=== PATIENT | male | born 1950 | race Caucasian/White ===

== ENCOUNTER 2017-12-02 05:35 | Day surgery (SDC) | payer MEDICARE, OTHER ==
[~2017-12-02] VITALS: Ht 172.7 cm; Wt 70.3 kg
[~2017-12-02 05:35] MED LIST: AMBIEN10 MG PO; BABY ASPIRIN81 MG PO; CRESTOR10 MG PO; FENOFIBRATE160 MG PO; IRON325 M1 PO; LISINOPRIL5 MG PO; MAGNESIUM250 M1 PO; NORCO 5-325 TA1 EACH PO; NORVASC5 MG PO; POTASSIUM CHLOR8 ME1 PO; SYNTHROID50 MCG PO; ZOLOFT50 MG PO
--- NOTE | 2017-12-02 08:47 | NUR ---
12/02/17 0847 Coty Vivas ICE TO BOTTOM. PT SITTING UP, REPORTS SOME TINGLING IN HIS TOES. PT NOTIFIED THIS IS DUE TO THE SADDLE BLOCK PREVIOUSLY DONE. PT ALSO REPORTS SOME PRESSURE IN RECTAL AREA.
--- NOTE | 2017-12-07 18:42 | OR ---
[facility] [address] [place], [place] [address] Signed DATE OF OPERATION: 12/02/2017 SURGEON: Kishan Webster MD PREOPERATIVE DIAGNOSIS: Left external hemorrhoid (left, posterior). POSTOPERATIVE DIAGNOSIS: Left external hemorrhoid (left, posterior). PROCEDURE: External hemorrhoidectomy x1. ESTIMATED BLOOD LOSS: None. INDICATIONS: Iliana is a 66-year-old gentleman who has had trouble with a left posterior external hemorrhoid. He has been to every conservative measure you can imagine. He has a very detailed treatment plan that he has been following. He can get the hemorrhoid obviously to shrink, but it frequently flares and it causes him some moisture and irritation around his anus. He has also had a lot of itching. He wanted me to look at it in the office. In the office, he does have a moderate-sized external hemorrhoid at the 11 o'clock position. Otherwise, he has good sphincter tone and actually has good perianal hygiene. In the office, I gave Iliana a booklet on hemorrhoids. We looked at that together in detail. I explained to Iliana, he was doing quite well with his conservative measures. Nevertheless, he wanted me to excise that external hemorrhoid for definitive treatment. I explained to him the nature of the surgery along with its risks including but not limited to bleeding, infection, scarring, change in contour of the skin as well as recurrent hemorrhoids. He had expressed understanding and wished to proceed. PROCEDURE NOTE: Iliana was given a saddle block by our nurse manager play. He was then taken into the operating room and placed in the prone ariella-knife position with appropriate padding and monitoring. He was given monitored anesthesia care per our nurse manager play. He was given preoperative antibiotics along with subcutaneous heparin. SCDs were utilized. He was then prepped and draped in the usual sterile fashion. After this, we examined his anal canal with a half-langford retractor. Again, he has just this 1 single external hemorrhoid. Really, no internal component. Really not much at all in the way of internal hemorrhoid tissue. The remainder of the external hemorrhoid tissue was just Electronically Signed By: KISHAN WEBSTER MD 12/07/17 1842 PATIENT NAME: ILIANA MARTINES OPERATIVE REPORT DATE OF : 46 PHYSICIAN: KISHAN WEBSTER MD REPORT #: [id number] REPORT IS CONFIDENTIAL AND NOT TO BE RELEASED WITHOUT AUTHORIZATION [facility] [address] [place] [id number] Signed fine. After this, we used our cautery to excise the external hemorrhoid completely. We passed it off the field. Local anesthetic was then injected underneath the operative site. Dry gauze was placed along with some underwear. Iliana was then rotated into the supine position onto his hospital bed and taken into recovery room in stable condition. MD JENNIFRE Moyer/NETOL /[id number] cc: MD Jimmie Moyer MD Electronically Signed By: KISHAN WEBSTER MD 12/07/17 1842 PATIENT NAME: CONRADILIANA AGNIESZKA OPERATIVE REPORT DATE OF : 46 PHYSICIAN: KISHAN WEBSTER MD REPORT #: [id number] REPORT IS CONFIDENTIAL AND NOT TO BE RELEASED WITHOUT AUTHORIZATION
== END 2017-12-02 09:15 | disposition home or self-care (01) ==
LOC: DS 05:35
PROVIDERS: Colon & Rectal Surgery
PROC: 3E033TZ Introduction of Destructive Agent into Peripheral Vein, Percutaneous Approach (ICD-10-PCS; principal; 2017-12-02 06:45)
DX: K64.4 Residual hemorrhoidal skin tags (principal); I25.10 Atherosclerotic heart disease of native coronary artery without angina pectoris; I10 Essential (primary) hypertension; E03.9 Hypothyroidism, unspecified; F32.9 Major depressive disorder, single episode, unspecified; F41.9 Anxiety disorder, unspecified; F17.210 Nicotine dependence, cigarettes, uncomplicated; Z85.048 Personal history of other malignant neoplasm of rectum, rectosigmoid junction, and anus; Z95.5 Presence of coronary angioplasty implant and graft; Z93.2 Ileostomy status; Z79.82 Long term (current) use of aspirin; Z90.49 Acquired absence of other specified parts of digestive tract; Z98.890 Other specified postprocedural states; Z88.1 Allergy status to other antibiotic agents; Z88.8 Allergy status to other drugs, medicaments and biological substances; Z79.899 Other long term (current) drug therapy
CPT/HCPCS: 00902; 88304; J0694; J1644; J1885; J2250; J2405; J2704; J3010; J7120

== ENCOUNTER 2020-09-03 06:55 | Day surgery (SDC) | payer MEDICARE, OTHER ==
[~2020-09-03] VITALS: Ht 172.7 cm; Wt 69.8 kg
[~2020-09-03 06:55] MED LIST changes: +GABAPENTIN400 MG PO; +MELATONIN5 M2 PO; +VITAMIN B-121000 MC3 PO
--- NOTE | 2020-09-03 10:27 | NUR ---
09/03/20 1027 Gina Almeida 1007 PT ARRIVED IN PACU SLEEPY. 1015 ICE TO ABD. NO C/O'S PAIN. 1025 RESTING. REU.
--- NOTE | 2020-09-03 10:51 | NUR ---
PT ARRIVED FROM PACU. REPORT RECIEVED FROM ELPIDIO Tovar RN. PT IS RESTING IN LOCKED AND LOWERED BED. CALL LIGHT WITHIN REACH. PAULINE AT THE BEDSIDE. ICE WATER PROVIDED.
[2020-09-03] MEDS ORDERED: PERCOCET 5-3251 EACH PO (11:11)
--- NOTE | 2020-09-03 11:25 | NUR ---
PT WALKED WITH 1 PERSON ASSIST TO THE RESTROOM. ACCOMPANIED PT TO THE RESTROOM. VOIDED WITH NO ISSUES. PT BACK RESTING IN LOCKED AND LOWERED BED. SIDE RAILS UP. AT THE BEDSIDE, NO FURTHER REQUESTS AT THIS TIME.
--- NOTE | 2020-09-03 12:19 | NUR ---
PT LEFT THE UNIT VIA WHEELCHAIR. TRANSFERRED INDEPENDENTLY FROM WHEELCHAIR TO VEHICLE WITH NO COMPLICATIONS. TRANSPORTING PT HOME.
--- NOTE | 2020-09-04 07:30 | OR ---
[facility] [address] [place], [place] [address] Signed DATE OF OPERATION: 09/03/2020 SURGEON: Kishan Webster MD PREOPERATIVE DIAGNOSES: Chronic cholecystitis and cholelithiasis. POSTOPERATIVE DIAGNOSES: Chronic cholecystitis and cholelithiasis. PROCEDURE: Laparoscopic cholecystectomy with intraoperative cholangiogram. ESTIMATED BLOOD LOSS: None. FINDINGS: The intraoperative cholangiogram was unremarkable. Iliana had very thick dark tar-like bile inside the gallbladder. He had multiple gallstones. The gallbladder wall was also mildly thickened. INDICATIONS: Iliana is a 69-year-old gentleman, who has been having pain in his right upper quadrant for 6 months or even longer. He said it is worse when he eats. He said it has gotten to the point he had to stop eating. He had been to his primary care provider. Ultrasound was ordered. He had a contracted gallbladder with multiple stones. The common bile duct was unremarkable. He probably had a fatty liver on ultrasound. That would be consistent with our visual findings of his liver during the procedure. His liver function tests were fine. I had met with Iliana and his in the office. I gave him a brochure on the gallbladder. They understand the location and function of the gallbladder. They understand laparoscopic versus open cholecystectomy. We reviewed the expected intraop and postop course. There is risk of surgery including, but not limited to bleeding, infection, scarring, change in contour of the skin, damage to bowel, damage to main bile duct, incisional hernias and other unforeseen comorbidities. They had expressed understanding and wished to proceed. DESCRIPTION OF PROCEDURE: I had met with Iliana and his once again in our preop area. After answering the questions, we took Iliana back to the operating room. He was placed in the supine position under general endotracheal tube anesthesia. He was given preoperative antibiotics along Electronically Signed By: KISHAN WEBSTER MD 09/04/20 0730 PATIENT NAME: ILIANA MARTINES OPERATIVE REPORT DATE OF : 46 REPORT #: [id number] PHYSICIAN: KISHAN WEBSTER MD PCP: ARMEN BALDERAS DO REPORT IS CONFIDENTIAL AND NOT TO BE RELEASED WITHOUT AUTHORIZATION [facility] [address] [place], [place] [address] Signed with subcutaneous heparin. SCDs were utilized. He was then prepped and draped in the usual sterile fashion. All trocars were then placed in usual positions under direct visualization of camera without difficulty. The gallbladder was grasped and elevated into the right upper quadrant. The findings were as above. Pictures were taken throughout for photodocumentation. 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 He had a few adhesions from the omentum. The triangle of Calot was then dissected free and a clip had been placed across the cystic artery and it was divided. The intraoperative cholangiocatheter was inserted into the cystic duct. The intraoperative cholangiogram was then performed. We did not visualize a filling defect and the contrast flowed readily into the duodenum. We then secured the cystic duct stump with a PDS Endoloop and 2 clips were placed across the cystic duct stump to alba its location. After this, the gallbladder was removed from the gallbladder fossa with the help of cautery and placed into an EndoCatch bag. We used our laparoscopic suturing device to pass 0 Vicryl suture on either side of the fascia of the subxiphoid trocar site. This was tied down to close this fascia primarily. After this, all the gas was allowed to escape and all the trocars were removed along with the gallbladder. The gallbladder was opened on the back table for photodocumentation by our circulating nurse. We then closed the fascia of the supraumbilical trocar site with interrupted [id number] and simple 0-Vicryl sutures. Local anesthetic was injected into all trocar sites. Each trocar site was irrigated and suctioned out until clear. The skin and dermis of each trocar site were closed with interrupted 3-0 subcuticular Monocryl sutures. Dry gauze and tape were applied to all incisions. After this, Iliana was awakened from his anesthesia, extubated in the OR, and taken to the recovery room in stable condition. Kishan Webster MD ALB/MODL /[id number] cc: RAMESH Saini MD Derek Earl, DO Electronically Signed By: KISHAN WEBSTER MD 09/04/20 0730 PATIENT NAME: ILIANA MARTINES OPERATIVE REPORT DATE OF : 46 REPORT #: [id number] PHYSICIAN: KISHAN WEBSTER MD PCP: ARMEN BALDERAS DO REPORT IS CONFIDENTIAL AND NOT TO BE RELEASED WITHOUT AUTHORIZATION [address] [address] Signed Copies: NAVNEETKISHAN CONROY MD, DEREK DO ~ Electronically Signed By: KISHAN WEBSTER MD 09/04/20 0730 PATIENT NAME: ILIANA MARTINES OPERATIVE REPORT DATE OF : 46 REPORT #: [id number] PHYSICIAN: KISHAN WEBSTER MD PCP: ARMEN BALDERAS DO REPORT IS CONFIDENTIAL AND NOT TO BE RELEASED WITHOUT AUTHORIZATION
--- NOTE | 2020-09-04 17:59 | PATH ---
[facility] [address] [place], [place] [address] Signed SPECIMEN(S): A GALLBLADDER AND GALLSTONES SPECIMEN SOURCE: A. GALLBLADDER AND GALLSTONES CLINICAL HISTORY: Cholecystitis, cholelithiasis. FINAL PATHOLOGIC DIAGNOSIS: Gallbladder, cholecystectomy: - Chronic calculous cholecystitis. BRP:[facility]:C2NR MICROSCOPIC EXAMINATION: Histologic sections of all submitted blocks are examined by light microscopy. These findings, together with the gross examination, support the pathologic diagnosis. GROSS DESCRIPTION: The specimen, labeled "TB, A.," and designated on the requisition "gallbladder and gallstones," is received in formalin and consists of Specimen: Previously opened gallbladder. Dimensions: 6.6 x 3.5 x 2.5 cm. Serosa: Violaceous and smooth with abundant adipose tissue. Cystic Duct: Unobstructed, narrow. Calculi: Three irregular, green-black calculi measuring 2.7 x 1.8 x 1.4 cm in aggregate. Mucosa: Root and roughened striations, a 1.3 x 0.5 cm, green, ulcerated area measuring approximately 4.8 cm from cystic duct. Wall thickness: Up to 1.9 cm. Lymph node: No pericystic lymph nodes are grossly identified. Additional: There is a 2.0 x 1.7 x 1.0 cm submucosal cavity containing green, gelatinous material at the fundus aspect, measuring 5.5 cm from cystic duct. [place] [employer] sections are submitted in cassettes (A1-A2). A2: Submucosal cavity with green, gelatinous material including mucosal ulceration. AT (under the direct supervision of a pathologist) The Gross Description was prepared using a voice recognition system. The report was reviewed for accuracy; however, sound-alike word errors, addition and/or deletions may occur. If there is any question about this report, please contact Client Services. PATIENT NAME: ILIANA MARTINES PATHOLOGY DATE OF : 46 REPORT #: [id number] PHYSICIAN: JARON PATHOLOGY PCP: ARMEN BALDERAS DO REPORT IS CONFIDENTIAL AND NOT TO BE RELEASED WITHOUT AUTHORIZATION [facility] [address] [place], [place] [address] Signed PERFORMING LABORATORY: The technical component was performed by [employer], [address] [place] [address] (Developmental Education Instructor: Gladys Quiñones MD; CLIA# [id number]). Professional interpretation was performed by [employer], formerly [facility], [address] [address] (CLIA# [id number]). Diagnostician: Moody Monet MD Pathologist Electronically Signed 09/04/2020 Copies: ~ PATIENT NAME: ILIANA MARTINES PATHOLOGY DATE OF : 46 REPORT #: [id number] PHYSICIAN: JARON AGARWAL PCP: ARMEN BALDERAS DO REPORT IS CONFIDENTIAL AND NOT TO BE RELEASED WITHOUT AUTHORIZATION
== END 2020-09-03 12:15 | disposition home or self-care (01) ==
LOC: DS 06:55
PROVIDERS: ATTEND Colon & Rectal Surgery
PROC: BF13YZZ Fluoroscopy of Gallbladder and Bile Ducts using Other Contrast (ICD-10-PCS; 2020-09-03)
PROC: 0FT44ZZ Resection of Gallbladder, Percutaneous Endoscopic Approach (ICD-10-PCS; principal; 2020-09-03 09:15)
DX: K80.10 Calculus of gallbladder with chronic cholecystitis without obstruction (principal); I10 Essential (primary) hypertension; I25.10 Atherosclerotic heart disease of native coronary artery without angina pectoris; F32.9 Major depressive disorder, single episode, unspecified; E03.9 Hypothyroidism, unspecified; Z79.899 Other long term (current) drug therapy; Z79.82 Long term (current) use of aspirin; Z87.891 Personal history of nicotine dependence
CPT/HCPCS: 00790; 74300; J0131; J0330; J0690; J1100; J1644; J1885; J2001; J2405; J2704; J3010; J7121; Q9967